=== PATIENT | male | born 1940 | race Caucasian/White ===

== ENCOUNTER 2017-09-21 13:05 | Day surgery (SDC) | payer OTHER ==
[2017-09-21 13:45] VITALS: BP 130/49
[2017-09-21 14:15] VITALS: BP 115/52
[2017-09-21 14:45] VITALS: BP 131/53
[2017-09-21 15:15] VITALS: BP 140/62
[2017-09-21] MEDS ORDERED: WATER FOR INJECTION,STERILE 20 ML VIAL ONE (16:00)
== END 2017-09-21 18:10 | disposition home or self-care (01) ==
LOC: DAH 13:05
PROVIDERS: ATTEND Radiology Body Imaging
DX: K92.1 Melena (principal)
CPT/HCPCS: 78278; A9512